=== PATIENT | male | born 1985 | race Caucasian/White ===

== ENCOUNTER 2022-04-07 18:24 | Observation (INO) | payer OTHER ==
[2022-04-07] MEDS ORDERED: SODIUM CHLORIDE 0.9% 500 ML 500 ML IV STA (18:30)
[2022-04-07 18:47] LABS: Basophils % (A) 0 %; Eosinophils # (A) 0.1 k/uL (0-0.7); Eosinophils % (A) 1 %; HCT 42.8 % (39.0-53.0); Lymphocytes # (A) 1.4 k/uL (1.0-4.8); Lymphocytes % (A) 17 %; MCH 30.3 pg (25.0-35.0); MCHC 32.7 g/dL (31.0-37.0); MCV 92.8 fL (80.0-100.0); Mean Platelet Volume 7.3; Monocytes # (A) 0.3 k/uL (0-1.0); Monocytes % (A) 4 %; Neutrophils % (A) 77 %; Platelet Count 247 k/uL (150-450); RBC 4.62 m/uL (4.30-5.90); WBC 7.8 k/uL (3.8-10.6)
--- NOTE | 2022-04-07 18:56 | XR ---
EXAMINATION TYPE: XR chest 1V portable DATE OF EXAM: 04/07/2022 COMPARISON: NONE HISTORY: Overdose TECHNIQUE: Single view FINDINGS: Heart and mediastinum are normal. There are calcified granulomata in both lungs. Diaphragm is normal. There are no hilar masses. There are chest leads. Bony thorax is intact. There is mild ple ural scarring at the lung apices. IMPRESSION: Old granulomatous disease. No active cardiopulmonary disease.
[2022-04-07 18:58] LABS: ALT 32 U/L (4-49); AST 22 U/L (17-59); Acetaminophen <10.0 ug/mL; African American GFR (CKD) >90 (>60 ml/min/1.73 sqM); Albumin 4.1 g/dL (3.5-5.0); Alkaline Phosphatase 74 U/L (38-126); Anion Gap 9 mmol/L; Blood Urea Nitrogen 10 mg/dL (9-20); Calcium 8.8 mg/dL (8.4-10.2); Carbon Dioxide 21 mmol/L (22-30); Chloride 113 mmol/L (98-107); Glucose 99 mg/dL (74-99); Lipase 318 U/L (23-300); Non-African American GFR(CKD) >90 (>60 ml/min/1.73 sqM); Potassium 3.3 mmol/L (3.5-5.1); Salicylate <1.0 mg/dL; Sodium 143 mmol/L (137-145); Total Bilirubin 0.3 mg/dL (0.2-1.3); Total Protein 6.7 g/dL (6.3-8.2)
--- NOTE | 2022-04-07 19:04 | ED ---
Overdose HPI - General Chief Complaint: Overdose Stated Complaint: overdose Time Seen by Provider: 04/07/22 18:27 Source: police, EMS, RN notes reviewed Mode of arrival: EMS Limitations: altered mental status - History of Present Illness Initial Comments: 1-year-old male brought by EMS at the behest of police because of suicidal ideation as well as ingestion of unknown amount of Paxil and possibly Seroquel. He also drank about a pint of liquor. Unclear why this occurred. Patient was less responsive upon arrival than when initially encountered by police and paramedics. It is believed this may have occurred around 1740 5 PM tonight. No known history of depression or suicidal attempts in the past. No other complaints no other modifying factors MD Complaint: intentional overdose - Related Data Home Medications Medication Instructions Recorded Confirmed OXcarbazepine [Trileptal] 300 mg PO HS 04/07/22 04/07/22 PARoxetine [Paxil] 20 mg PO DAILY 04/07/22 04/07/22 QUEtiapine [SEROquel] 100 mg PO HS 04/07/22 04/07/22 Allergies Allergy/AdvReac Type Severity Reaction Status Date / Time No Known Allergies Allergy Verified 04/07/22 20:03 Review of Systems ROS Statement: Those systems with pertinent positive or pertinent negative responses have been documented in the HPI. ROS Other: All systems not noted in ROS Statement are negative. Past Medical History Past Medical History: Seizure Disorder Additional Past Medical History / Comment(s): Back problems History of Any Multi-Drug Resistant Organisms: None Reported Past Surgical History: No Surgical Hx Reported Past Psychological History: Anxiety Smoking Status: Vaper Past Alcohol Use History: None Reported Past Drug Use History: Marijuana General Exam - General Exam Comments Initial Comments: This is a well-developed asthenic appearing male who is awake alert lethargic. No acute distress Limitations: altered mental status General appearance: alert, lethargic Head exam: Present: atraumatic, normocephalic, normal inspection Eye exam: Present: normal appearance, PERRL, EOMI. Absent: scleral icterus, conjunctival injection, periorbital swelling ENT exam: Present: mucous membranes dry Neck exam: Present: normal inspection. Absent: tenderness, meningismus, lymphadenopathy Respiratory exam: Present: normal lung sounds bilaterally. Absent: respiratory distress, wheezes, rales, rhonchi, stridor Cardiovascular Exam: Present: normal rhythm, tachycardia, normal heart sounds. Absent: systolic murmur, diastolic murmur, rubs, gallop, clicks GI/Abdominal exam: Present: soft, normal bowel sounds. Absent: distended, tenderness, guarding, rebound, rigid Extremities exam: Present: normal inspection, full ROM, normal capillary refill. Absent: tenderness, pedal edema, joint swelling, calf tenderness Back exam: Present: normal inspection Neurological exam: Present: alert, oriented X3, CN II-XII intact Psychiatric exam: Present: depressed, flat affect, suicidal ideation Skin exam: Present: warm, dry, intact, normal color. Absent: rash Course Vital Signs 04/07/22 04/07/22 18:28 19:44 Pulse Rate 117 H 89 Respiratory 18 16 Rate Blood Pressure 105/60 94/66 O2 Sat by Pulse 97 95 Oximetry - Reevaluation(s) Reevaluation #1: 04/07/22 20:55 Patient continues rest comfortably vital signs stable Medical Decision Making - Medical Decision Making Patient will be admitted did discuss case with Dr. Bass demonstrate evidence of depression and overdose of all intoxication dehydration - Lab Data Result diagrams: 04/07/22 18:35 04/07/22 18:35 Lab Results 04/07/22 04/07/22 04/07/22 Range/Units 18:35 18:35 18:35 WBC 7.8 (3.8-10.6) k/uL RBC 4.62 (4.30-5.90) m/uL Hgb 14.0 (13.0-17.5) gm/dL Hct 42.8 (39.0-53.0) % MCV 92.8 (80.0-100.0) fL MCH 30.3 (25.0-35.0) pg MCHC 32.7 (31.0-37.0) g/dL RDW 13.0 (11.5-15.5) % Plt Count 247 (150-450) k/uL MPV 7.3 Neutrophils % 77 % Lymphocytes % 17 % Monocytes % 4 % Eosinophils % 1 % Basophils % 0 % Neutrophils # 6.0 (1.3-7.7) k/uL Lymphocytes # 1.4 (1.0-4.8) k/uL Monocytes # 0.3 (0-1.0) k/uL Eosinophils # 0.1 (0-0.7) k/uL Basophils # 0.0 (0-0.2) k/uL Sodium 143 (137-145) mmol/L Potassium 3.3 L (3.5-5.1) mmol/L Chloride 113 H (98-107) mmol/L Carbon Dioxide 21 L (22-30) mmol/L Anion Gap 9 mmol/L BUN 10 (9-20) mg/dL Creatinine 0.87 (0.66-1.25) mg/dL Est GFR (CKD-EPI)AfAm >90 (>60 ml/min/1.73 sqM) Est GFR (CKD-EPI)NonAf >90 (>60 ml/min/1.73 sqM) Glucose 99 (74-99) mg/dL Plasma Lactic Acid Sj 2.1 H* (0.7-2.0) mmol/L Calcium 8.8 (8.4-10.2) mg/dL Total Bilirubin 0.3 (0.2-1.3) mg/dL AST 22 (17-59) U/L ALT 32 (4-49) U/L Alkaline Phosphatase 74 (38-126) U/L Troponin I (0.000-0.034) ng/mL Total Protein 6.7 (6.3-8.2) g/dL Albumin 4.1 (3.5-5.0) g/dL Lipase 318 H (23-300) U/L Salicylates <1.0 mg/dL Acetaminophen <10.0 ug/mL Serum Alcohol 110 mg/dL 04/07/22 Range/Units 18:35 WBC (3.8-10.6) k/uL RBC (4.30-5.90) m/uL Hgb (13.0-17.5) gm/dL Hct (39.0-53.0) % MCV (80.0-100.0) fL MCH (25.0-35.0) pg MCHC (31.0-37.0) g/dL RDW (11.5-15.5) % Plt Count (150-450) k/uL MPV Neutrophils % % Lymphocytes % % Monocytes % % Eosinophils % % Basophils % % Neutrophils # (1.3-7.7) k/uL Lymphocytes # (1.0-4.8) k/uL Monocytes # (0-1.0) k/uL Eosinophils # (0-0.7) k/uL Basophils # (0-0.2) k/uL Sodium (137-145) mmol/L Potassium (3.5-5.1) mmol/L Chloride (98-107) mmol/L Carbon Dioxide (22-30) mmol/L Anion Gap mmol/L BUN (9-20) mg/dL Creatinine (0.66-1.25) mg/dL Est GFR (CKD-EPI)AfAm (>60 ml/min/1.73 sqM) Est GFR (CKD-EPI)NonAf (>60 ml/min/1.73 sqM) Glucose (74-99) mg/dL Plasma Lactic Acid Sj (0.7-2.0) mmol/L Calcium (8.4-10.2) mg/dL Total Bilirubin (0.2-1.3) mg/dL AST (17-59) U/L ALT (4-49) U/L Alkaline Phosphatase (38-126) U/L Troponin I <0.012 (0.000-0.034) ng/mL Total Protein (6.3-8.2) g/dL Albumin (3.5-5.0) g/dL Lipase (23-300) U/L Salicylates mg/dL Acetaminophen ug/mL Serum Alcohol mg/dL - EKG Data -: EKG Interpreted by Mi EKG shows normal: sinus rhythm EKG Comments: Sinus tachycardia rate 102 appear interval 150 to QRS 70 QT since QTC 324/[address]-T wave changes - Radiology Data Radiology results: report reviewed (Imaging reviewed no acute findings), image reviewed Critical Care Time Critical Care Time: Yes Total Critical Care Time: 31 Critical Care Time: cussion with admitting physician admission orders and documentation the above Disposition Clinical Impression: Drug overdose, Alcohol intoxication, Depression, Suicidal ideation, Dehydration, Tachycardia Disposition: ADMITTED IP TO THIS [facility] Condition: Fair Referrals: Nonstaff,Physician [Primary Care Provider] - 1-2 days Decision Date: 04/07/22 Decision Time: 20:30
[2022-04-07 19:17] LABS: Alcohol 110 mg/dL
[2022-04-07] MEDS ORDERED: NALOXONE 0.4 MG/ML 1 ML VIAL IV PRN (20:58)
[2022-04-07] MEDS ORDERED: MAGNESIUM SULFATE-D5W PMX 1 GM in DEXTROSE/WATER 1 100ML.BAG IVPB ONE (21:47)
[2022-04-07] MEDS ORDERED: CALCIUM GLUCONATE IN NACL 1 GM in SALINE 1 100ML.BAG IVPB ONE (22:10)
[2022-04-07] MEDS ORDERED: POTASSIUM CHLORIDE 20 MEQ in WATER FOR INJECTION 1 100ML.BAG IVPB ONE (22:10)
[2022-04-07] MEDS: LACTATED RINGERS 1,000 ML IV SCH (22:25)
[2022-04-07] MEDS: SODIUM CHLORIDE 0.9% 1,000 ML IV SCH (22:35)
[2022-04-08] MEDS: LACTATED RINGERS 1,000 ML IV SCH ×2 (08:32→15:26)
[2022-04-08] MEDS: SODIUM CHLORIDE 0.9% 1,000 ML IV SCH (08:33)
[2022-04-08 11:13] LABS: Amphetamine Screen,Urine Not Detected (NotDetected); Barbiturate Screen,Urine Not Detected (NotDetected); Benzodiazepines Screen,Urine Not Detected (NotDetected); Cocaine Screen,Urine Not Detected (NotDetected); Methadone Screen, Urine Not Detected (NotDetected); Opiate Screen,Urine Not Detected (NotDetected); Oxycodone Screen, Urine Not Detected (NotDetected); Phencyclidine Screen,Urine Not Detected (NotDetected); Tricyclic Antidepressant,Urine Detected (NotDetected); Urn Cannabinoid Scrn Detected (NotDetected)
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
[2022-04-08 15:25] VITALS: RESP 18
[2022-04-08] MEDS: OXcarbazepine 300 MG TAB PO SCH (19:45)
[2022-04-08] MEDS ORDERED: QUEtiapine 100 MG TAB PO SCH (21:00)
[2022-04-08] MEDS ORDERED: OXcarbazepine 300 MG TAB PO SCH (21:00)
[2022-04-09] MEDS: LACTATED RINGERS 1,000 ML IV SCH ×2 (00:28→06:15)
[2022-04-09] MEDS ORDERED: PARoxetine 20 MG TAB PO SCH (09:00)
[2022-04-09] MEDS: OXcarbazepine 300 MG TAB PO SCH (09:47)
[2022-04-09 10:40] LABS: African American GFR (CKD) 110.2 (60.0-200.0); Albumin 4.2 g/dL (3.8-4.9); Albumin/Globulin Ratio 1.91 (1.60-3.17); BUN/Creat Ratio 14.7 Ratio (12.00-20.00); Blood Urea Nitrogen 14.7 mg/dL (9.0-27.0); Globulin 2.2 g/dL (1.6-3.3); Non-African American GFR(CKD) 95.1 (60.0-200.0); Potassium 4.1 mmol/L (3.5-5.5); Total Bilirubin 0.5 mg/dL (0.30-1.20); Total Protein 6.4 g/dL (6.2-8.2)
[2022-04-09 10:57] LABS: Basophils # (A) 0.04 X 10*3/uL (0.00-0.10); Basophils % (A) 0.6 %; Eosinophils # (A) 0.35 X 10*3/uL (0.04-0.35); Eosinophils % (A) 5.3 %; HCT 44.3 % (39.6-50.0); HGB 14.6 g/dL (13.0-17.0); Immature Grans, Automated 0.3 %; Lymphocytes # (A) 2.01 X 10*3/uL (0.90-5.00); Lymphocytes % (A) 30.6 %; MCV 91.2 fL (80.0-97.0); Mean Platelet Volume 10.9 fL (9.5-12.2); Monocytes # (A) 0.71 X 10*3/uL (0.20-1.00); Monocytes % (A) 10.8 %; NRBC Per 100 WBC 0 /100 WBCS (0.0-0.0); Neutrophils # (A) 3.43 X 10*3/uL (1.80-7.70); Neutrophils % (A) 52.4 %; Platelet Count 262 X 10*3/uL (140-440); RBC 4.86 X 10*6/uL (4.40-5.60); RDW 12.8 % (11.5-14.5); WBC 6.56 X 10*3/uL (4.50-10.00)
[2022-04-09] MEDS ORDERED: NICOTINE 21MG/24HR PATCH TRANSDERM SCH (11:45)
[2022-04-09 16:23] VITALS: BP 130/84; PULSE 66; TEMP 98.6
--- NOTE | 2022-04-09 19:34 | P.HPIM ---
History of Present Illness H&P Date: 04/09/22 Chief Complaint: Overdose I'm covering for Dr. Shant Bass today This is a 36-year-old patient who follows with Dr. Rios. Patient was brought to the ER with the petition and certification for intentional overdose. Patient is brought in he was intoxicated. He was petition by the police. Apparently he told his girlfriend that he wanted to . Today tells me that he is having a lot of stress because he has his girlfriend and his ex- living with him. He took probably 4 doses of Paxil and 4 doses of Seroquel intentional going to sleep. He also drank a pint of liquor. Patient feels rather depressed and anxious. Oral intake has been fair. Patient's current telemetry. No arrhythmias. Patient is rather anxious that he gets to see his children once a month which is this Thursday. I explained to him the importance of staying in the hospital. He is rather anxious and fidgety currently. Has a sitter. Did eat breakfast this morning Review of systems: GEN.: None EYES: None HEENT: None NECK: None RESPIRATORY: None CARDIOVASCULAR: None GASTROINTESTINAL: None GENITOURINARY: None MUSCULOSKELETAL: None LYMPHATICS: None HEMATOLOGICAL: None PSYCHIATRY: Depressed anxious NEUROLOGICAL: None Past medical history to include: Seizure disorder, back problems, bipolar Social history: Currently not employed. Started smoking since 1994 2 packs a day currently down to 1 pack a day. Does smoke marijuana daily. He drinks alcohol only occasionally. Drank a pint yesterday. Family history: Spina bifida Physical examination: VITAL SIGNS: 98.7, 88, 16, 122/81, 97% room air GENERAL: Sitting up in bed awake, anxious. EYES: Pupils equal. Conjunctiva normal. HEENT: External appearance of nose and ears normal, oral cavity grossly normal. NECK: JVD not raised; masses not palpable. HEART: First and second heart sounds are normal; no edema. LUNGS: Respiratory rate normal; clear to auscultation. ABDOMEN: Soft, nontender, liver spleen not palpable, no masses palpable. PSYCH: Alert and oriented x3; mood and affect anxiousl. MUSCULOSKELETAL:No Clubbing/cyanosis;muscles-grossly intact NEUROLOGICAL: Cranial nerves grossly intact; no facial asymmetry, power and sensation grossly intact. LYMPHATICS: No lymph nodes palpable in the axilla and neck INVESTIGATIONS, reviewed in the clinical context: White count 6.5 hemoglobin 14.6 platelets 262 potassium 4.1 creatinine 1.0 COVID 19: Not detected Admission labs: EKG tracing personally reviewed by me-no sinus rhythm. Chest x-ray film personally reviewed by me-possibly granulomatous disease, old Lactic acid 2.1 potassium 3.3 Serum alcohol 110 Urine drug screen: Tricyclic antidepressants, marijuana Assessment and plan: -Overdose of 4 tablets of Paxil and Seroquel approximately with alcohol. Patient is stated to his family that he was suicidal. Not a safe that he was just rather wanted to go to sleep. Repeat EKG today unremarkable -Chronic nicotine dependence, cigarette smoking Nicotine patch -Acute alcohol overdose Patient has now sober down. -Seizure disorder On Trileptal Patient is seen by psychiatry. They will take him down the psychiatry floor. I spoke to patient at length about the importance of doing this. And being compliant. He agrees. Does not need a petition.. He will go down to the psychiatry floor voluntarily. Smoke cessation counseling: This was done with the patient. Nicotine patch is being given. More than 3 minutes was spent for this Past Medical History Past Medical History: Seizure Disorder Additional Past Medical History / Comment(s): Back problems, pt states last seizure 3 days ago. History of Any Multi-Drug Resistant Organisms: None Reported Past Surgical History: No Surgical Hx Reported Past Anesthesia/Blood Transfusion Reactions: Unable to Obtain Additional Past Anesthesia/Blood Transfusion Reaction / Comment(s): Pt has never had anesthesia. Smoking Status: Current every day smoker - Past Family History Father History Unknown: Yes Mother Additional Family Medical History / Comment(s): Spina bifida. Medications and Allergies Home Medications Medication Instructions Recorded Confirmed Type OXcarbazepine [Trileptal] 300 mg PO BID tab 04/09/22 04/09/22 Rx Allergies Allergy/AdvReac Type Severity Reaction Status Date / Time No Known Allergies Allergy Verified 04/09/22 18:44 Physical Exam Vitals: Vital Signs Temp Pulse Pulse Pulse Resp BP BP 04/09/22 09:50 98.7 F 88 122/81 04/08/22 17:25 98.3 F 76 18 04/08/22 17:08 98.2 F 68 18 132/85 04/08/22 15:20 70 18 114/76 04/08/22 11:25 76 04/08/22 11:15 98.6 F 77 17 BP Pulse Ox 04/09/22 09:50 97 04/08/22 17:25 139/88 98 04/08/22 17:08 97 04/08/22 15:20 97 04/08/22 11:25 04/08/22 11:15 125/80 97 Intake and Output 04/08/22 04/09/22 04/09/22 22:59 06:59 14:59 Intake Total 400 Balance 400 Intake: Oral 400 Other: Voiding Method Toilet # Voids 1 1 1 Weight 77.111 kg Results CBC & Chem 7: 04/09/22 06:13 04/09/22 06:13 Labs: Abnormal Lab Results - Last 24 Hours (Table) 04/07/22 Range/Units 10:35 U Tricyclic Antidepress Detected H (NotDetected) U Marijuana (THC) Screen Detected H (NotDetected) Thrombosis Risk Factor Assmnt - Choose All That Apply Any of the Below Risk Factors Present?: No Other Risk Factors: No Other congenital or acquired thrombophilia - If yes, enter type in comment: No Thrombosis Risk Factor Assessment Level: Very Low Risk
--- NOTE | 2022-04-09 19:38 | P.DS ---
Providers Date of admission: 04/07/22 20:58 Expected date of discharge: 04/09/22 Attending physician: Shant Bass Consults: 04/07/22 20:58 Consult Physician Routine Consulting Provider: Jimmy Ortiz Consult Reason/Comments: Suicidal ideation, drug overdose, alcohol intoxication Do you want consulting provider notified?: Already Contacted Primary care physician: Physician Nonstaff Hospital Course: Chief Complaint: Overdose I'm covering for Dr. Shant Bass today This is a 36-year-old patient who follows with Dr. Rios. Patient was brought to the ER with the petition and certification for intentional overdose. Patient is brought in he was intoxicated. He was petition by the police. Apparently he told his girlfriend that he wanted to . Today tells me that he is having a lot of stress because he has his girlfriend and his ex- living with him. He took probably 4 doses of Paxil and 4 doses of Seroquel intentional going to sleep. He also drank a pint of liquor. Patient feels rather depressed and anxious. Oral intake has been fair. Patient's current telemetry. No arrhythmias. Patient is rather anxious that he gets to see his children once a month which is this Thursday. I explained to him the importance of staying in the hospital. He is rather anxious and fidgety currently. Has a sitter. Did eat breakfast this morning Discussed with patient at length. Patient is agreed to go down to 3 W. without a petition. Voluntarily. Counseled about smoking. Paxil and Seroquel was held by psychiatry. On Trileptal. Past medical history to include: Seizure disorder, back problems, bipolar Social history: Currently not employed. Started smoking since 1994 2 packs a day currently down to 1 pack a day. Does smoke marijuana daily. He drinks alcohol only occasionally. Drank a pint yesterday. Family history: Spina bifida Physical examination: VITAL SIGNS: 98.7, 88, 16, 122/81, 97% room air GENERAL: Sitting up in bed awake, anxious. EYES: Pupils equal. Conjunctiva normal. HEENT: External appearance of nose and ears normal, oral cavity grossly normal. NECK: JVD not raised; masses not palpable. HEART: First and second heart sounds are normal; no edema. LUNGS: Respiratory rate normal; clear to auscultation. ABDOMEN: Soft, nontender, liver spleen not palpable, no masses palpable. PSYCH: Alert and oriented x3; mood and affect anxiousl. MUSCULOSKELETAL:No Clubbing/cyanosis;muscles-grossly intact NEUROLOGICAL: Cranial nerves grossly intact; no facial asymmetry, power and sensation grossly intact. LYMPHATICS: No lymph nodes palpable in the axilla and neck INVESTIGATIONS, reviewed in the clinical context: White count 6.5 hemoglobin 14.6 platelets 262 potassium 4.1 creatinine 1.0 COVID 19: Not detected Admission labs: EKG tracing personally reviewed by me-no sinus rhythm. Chest x-ray film personally reviewed by me-possibly granulomatous disease, old Lactic acid 2.1 potassium 3.3 Serum alcohol 110 Urine drug screen: Tricyclic antidepressants, marijuana Assessment and plan: -Overdose of 4 tablets of Paxil and Seroquel approximately with alcohol. Patient is stated to his family that he was suicidal. Not a safe that he was just rather wanted to go to sleep. Repeat EKG today unremarkable -Chronic nicotine dependence, cigarette smoking Nicotine patch -Acute alcohol overdose Patient has now sober down. -Seizure disorder On Trileptal Disposition: Transfer to psychiatry floor 3 W. Plan - Discharge Summary Discharge Rx Participant: No New Discharge Prescriptions: New OXcarbazepine [Trileptal] 300 mg PO BID tab Discontinued QUEtiapine [SEROquel] 100 mg PO HS PARoxetine [Paxil] 20 mg PO DAILY OXcarbazepine [Trileptal] 300 mg PO HS Discharge Medication List OXcarbazepine [Trileptal] 300 mg PO BID tab 04/09/22 [Rx] Follow up Appointment(s)/Referral(s): Franki Rios MD [STAFF PHYSICIAN] - As Needed
== END 2022-04-09 17:55 ==
LOC: EC 18:24 → 3SCARD 20:58 → 4SSUR 04-08 15:54
PROVIDERS: ADMIT Family Medicine; ATTEND Family Medicine
DX: T43.222A Poisoning by selective serotonin reuptake inhibitors, intentional self-harm, initial encounter (principal); T51.0X2A Toxic effect of ethanol, intentional self-harm, initial encounter; T43.592A Poisoning by other antipsychotics and neuroleptics, intentional self-harm, initial encounter; R45.851 Suicidal ideations; F17.210 Nicotine dependence, cigarettes, uncomplicated; G40.909 Epilepsy, unspecified, not intractable, without status epilepticus; F41.9 Anxiety disorder, unspecified; F31.9 Bipolar disorder, unspecified; F60.89 Other specific personality disorders; R00.0 Tachycardia, unspecified; E86.0 Dehydration; Z20.822 Contact with and (suspected) exposure to COVID-19; Z63.0 Problems in relationship with spouse or partner; Z74.3 Need for continuous supervision; Z71.6 Tobacco abuse counseling; Z79.899 Other long term (current) drug therapy; Z82.0 Family history of epilepsy and other diseases of the nervous system; Z91.51 Personal history of suicidal behavior; Z91.52 Personal history of nonsuicidal self-harm; Z81.8 Family history of other mental and behavioral disorders
CPT/HCPCS: 96366 ×2; 96368; 96361; 96365; 99285; 36415; 93005 ×2; 80053 ×2; 83605; 83690; 83735; 84484; 85025 ×2; 80306; 80143; 87635; 80179; 71045; G0378 ×4; G0480; S4990; J3480; J3475; J0610; 80320

== ENCOUNTER 2022-04-09 15:09 | Inpatient (IN) | payer MEDICAID ==
[2022-04-09] MEDS ORDERED: MAG HYDROX/AL HYDROX/SIMETH 30 ML CUP PO PRN (17:21)
[2022-04-09] MEDS ORDERED: HALOPERIDOL LACTATE 5 MG/ML 1 ML VIAL IM PRN (17:21)
[2022-04-09] MEDS ORDERED: ACETAMINOPHEN TAB 325 MG TAB PO PRN (17:21)
[2022-04-09] MEDS ORDERED: MAGNESIUM HYDROXIDE 2,400 MG/10 ML CUP PO PRN (17:21)
[2022-04-09] MEDS ORDERED: haloperidoL 5 MG TAB PO PRN (17:25)
[2022-04-09] MEDS ORDERED: LORazepam 1 MG/0.5 ML VIAL IM PRN (17:25)
[2022-04-09] MEDS ORDERED: LORazepam 1 MG TAB PO PRN (17:26)
[2022-04-09] MEDS: OXcarbazepine 300 MG TAB PO SCH (20:49)
[2022-04-10] MEDS: NICOTINE 14MG/24HR PATCH TRANSDERM SCH (08:42)
[2022-04-10] MEDS: OXcarbazepine 300 MG TAB PO SCH ×2 (08:42→20:16)
[2022-04-10 10:17] LABS: Basophils # (A) 0.1 k/uL (0-0.2); Basophils % (A) 1 %; Eosinophils # (A) 0.2 k/uL (0-0.7); Eosinophils % (A) 2 %; HCT 50.1 % (39.0-53.0); HGB 16.6 gm/dL (13.0-17.5); Lymphocytes # (A) 1.3 k/uL (1.0-4.8); Lymphocytes % (A) 15 %; MCH 30.2 pg (25.0-35.0); MCHC 33.1 g/dL (31.0-37.0); MCV 91.2 fL (80.0-100.0); Mean Platelet Volume 7.1; Monocytes # (A) 0.7 k/uL (0-1.0); Monocytes % (A) 8 %; Neutrophils # (A) 6.3 k/uL (1.3-7.7); Neutrophils % (A) 73 %; Platelet Count 299 k/uL (150-450); RDW 12.7 % (11.5-15.5); WBC 8.7 k/uL (3.8-10.6)
[2022-04-10 10:56] LABS: ALT 25 U/L (4-49); AST 24 U/L (17-59); African American GFR (CKD) >90 (>60 ml/min/1.73 sqM); Alkaline Phosphatase 101 U/L (38-126); Anion Gap 8 mmol/L; Blood Urea Nitrogen 13 mg/dL (9-20); Calcium 9.8 mg/dL (8.4-10.2); Carbon Dioxide 27 mmol/L (22-30); Chloride 104 mmol/L (98-107); Glucose 89 mg/dL (74-99); Non-African American GFR(CKD) >90 (>60 ml/min/1.73 sqM); Potassium 4.5 mmol/L (3.5-5.1); Sodium 139 mmol/L (137-145); Total Bilirubin 0.8 mg/dL (0.2-1.3); Total Protein 8.4 g/dL (6.3-8.2)
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
[2022-04-10 14:29] LABS: Chol/HDL Ratio 7.11 Ratio; LDL Cholesterol,Calculated 192.5 mg/dL (0.0-131.0)
[2022-04-10] MEDS ORDERED: IBUPROFEN 600 MG TAB PO PRN (14:32)
[2022-04-10] MEDS ORDERED: BENZOCAINE 20 % GEL 11.9 GM TUBE MM ONE (14:36)
[2022-04-10] MEDS ORDERED: MIRTAZAPINE 15 MG TAB PO SCH (21:00)
[2022-04-11 06:56] VITALS: BP 107/65; PULSE 55; RESP 16; TEMP 98.2
[2022-04-11] MEDS: NICOTINE 14MG/24HR PATCH TRANSDERM SCH (08:22)
[2022-04-11] MEDS: OXcarbazepine 300 MG TAB PO SCH (08:23)
--- NOTE | 2022-04-11 09:05 | CONS ---
CONSULTATION CHIEF COMPLAINT: Alcoholism and DTs as well as depression. HISTORY OF PRESENT ILLNESS: The patient is recently new to the practice. He apparently came in with alcohol excess and DTs. His past medical history reveals that he is on Trileptal 300 mg at night, Seroquel 100 mg at night, Paxil 20 mg once a day. He has had no prior surgery. He does smoke. PHYSICAL EXAMINATION: Blood pressure 130/90 with a pulse 92, respirations 16. He is afebrile. In general he appeared to be slender and in no acute distress. Skin is dry. Lymph nodes are not enlarged. Head, ears, eyes, nose, mouth and throat were normal and neck veins were not distended. Thyroid is not enlarged. Chest is clear. Cardiac exam is normal. The abdomen is soft and nontender. IMPRESSION: 1. Alcoholism. 2. Delirium tremens. 3. Major depression. RECOMMENDATIONS: No change in his program at this time. MMODL / IJN: [id number] /
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
== END 2022-04-11 11:20 | disposition home or self-care (01) | DRG 885 ==
LOC: 3MHU 18:00
PROVIDERS: ADMIT Psychiatry & Neurology Psychiatry; ATTEND Psychiatry & Neurology Psychiatry
DX: F33.1 Major depressive disorder, recurrent, moderate (principal); F10.231 Alcohol dependence with withdrawal delirium; F12.10 Cannabis abuse, uncomplicated; F17.210 Nicotine dependence, cigarettes, uncomplicated; F41.9 Anxiety disorder, unspecified; F60.89 Other specific personality disorders; F91.3 Oppositional defiant disorder; G40.909 Epilepsy, unspecified, not intractable, without status epilepticus; G47.00 Insomnia, unspecified; T43.592D Poisoning by other antipsychotics and neuroleptics, intentional self-harm, subsequent encounter; T43.222D Poisoning by selective serotonin reuptake inhibitors, intentional self-harm, subsequent encounter; Z79.899 Other long term (current) drug therapy; Z91.52 Personal history of nonsuicidal self-harm; Z28.310 Unvaccinated for COVID-19; Z28.21 Immunization not carried out because of patient refusal
CPT/HCPCS: 80053; 80061; 80183; 83036; 84443; 85025